=== PATIENT | female | born 1965 | race Caucasian/White ===

== ENCOUNTER → 2016-08-25 | Outpatient (CLI) | payer OTHER ==
[~2016-08-25] MED LIST: ATEN50 PO; CHLO25 PO; ESTR0.5T PO; FOLI1 PO; LISI-360 PO; METH40TA9 PO; PROT40TA PO; THERM PO; THIA100T PO
--- NOTE | 2016-08-25 12:06 | RADRPT ---
EXAM DATE/TIME: 08/25/2016 11:44 [place] COMPARISON: No previous studies available for comparison. INDICATIONS : Abdominal pain and blood in stool MEDICAL HISTORY : None. SURGICAL HISTORY : Cholecystectomy. ENCOUNTER: Initial ACUITY: 3 weeks PAIN SCORE: 10/10 LOCATION: Left lower quadrant FINDINGS: There is a large amount of stool throughout the colon characteristic of constipation. Cholecystectomy clips are noted in the right upper quadrant. The osseous structures are intact. CONCLUSION: Large amount of stool is present throughout the colon. Alfonso Centeno MD on August 25, 2016 at 12:04 Board Certified Radiologist. This report was verified electronically.
== END ==
LOC: HRAD 11:11
DX: R10.32 Left lower quadrant pain (principal)
CPT/HCPCS: 74020